=== PATIENT | male | born 1950 | race Caucasian/White ===

== ENCOUNTER → 2019-01-22 | Outpatient (CLI) | payer MEDICARE | END | disposition home or self-care (01) | LOC: PCVCCLINIC 11:56 | PROVIDERS: ATTEND Internal Medicine | DX: I10 Essential (primary) hypertension (principal); E78.5 Hyperlipidemia, unspecified; R06.02 Shortness of breath; R93.1 Abnormal findings on diagnostic imaging of heart and coronary circulation | CPT/HCPCS: 93005; G0463 ==

== ENCOUNTER → 2019-01-27 | Outpatient (CLI) | payer MEDICARE ==
--- NOTE | 2019-01-27 15:15 | PCVCIMAG ---
APPROVED REPORT Study performed: 01/27/2019 13:24:42 Exam: Stress Echocardiogram Indication: Hyperlipidemia, Hypertension, Elevated calcium score Patient Location: Echo lab Stress Nurse: Melyssa Junior RN Status: routine Ht: 6 ft 2 in HR: 71 bpm Rhythm: NSR Medical History Medical History: Hyperlipidemia, HTN Procedure The patient underwent an Exercise Stress Test using the Edmundo Protocol. Blood pressure, heart rate, and EKG were monitored. An Echocardiogram was performed by diesel maintenance technician in four stages in quad fashion. At peak stress, four selected images were obtained and placed side by side with resting images for comparison. Stress Test Details Stress Test: Exercise stress testing was performed using a Edmundo protocol. HR Resting HR: 71 bpmMax Heart Rate (APMHR): 154 bpm Max HR Achieved: 148 bpmTarget HR (85% APMHR): 130 bpm % of APMHR: 96 Recovery HR: 90 bpm HR response to stress: Normal HR response to stress BP Resting BP: 130/80 mmHg Max BP: 160/80 mmHg Recovery BP: 140/78 mmHg BP response to stress: Normal blood pressure response to stress. ECG Resting ECG: Sinus Rhythm Stress ECG: Sinus Rhythm ST Change: Normal Maximum ST Deviation: 0 mm Arrhythmia: None Recovery ECG: Sinus Rhythm Recovery ST Change: Normal Recovery ST Deviation: 0 mm Recovery Arrhythmia: None Clinical Reason for Termination: Maximal effort Exercise duration: 9 min 01 sec Highest Stage Achieved: Stage 3: 3.4 mph at 14% grade. Exercise capacity: 10.10 METs Overall Exercise Capacity for Age: Normal Angina Score: None Stress ECG Conclusion Clinical: Non-ischemic ECG: Non-ischemic [place] Treadmill Score is 9.0 which is Low risk. Pre-Stress Echo The resting Echocardiogram showed normal left ventricular contractility with an estimated Ejection Fraction of about 55-60%. Normal wall motion in all segments on baseline images. Post-Stress Echo The stress Echocardiogram showed normal left ventricular contractility with an estimated Ejection Fraction of about 60-65%. Normal augmentation of wall motion in all segments on post stress images. Clinical No clinical or ECG evidence for ischemia. Conclusion Clinical Response: Non-ischemic Exercise Capacity: Average Stress ECG Response: Non-ischemic Stress Echo Images: Non-ischemic The left ventricle is normal in size and wall thickness in both the rest and stress images. Normal stress echocardiogram with maximal exercise stress. Other Information Study Quality: Adequate <Conclusion> The left ventricle is normal in size and wall thickness in both the rest and stress images. Normal stress echocardiogram with maximal exercise stress.
== END | disposition home or self-care (01) ==
LOC: PCVCIMAG 13:25
PROVIDERS: ATTEND Internal Medicine
DX: I10 Essential (primary) hypertension (principal); E78.5 Hyperlipidemia, unspecified; R93.1 Abnormal findings on diagnostic imaging of heart and coronary circulation
CPT/HCPCS: 93325; 93351

== ENCOUNTER → 2019-08-04 | Outpatient (CLI) | payer MEDICARE ==
--- NOTE | 2019-08-04 10:05 | PCVCIMAG ---
APPROVED REPORT Study performed: 08/04/2019 08:47:59 EXAM: Comprehensive 2D, Doppler, and color-flow Echocardiogram Patient Location: Echo lab Status: routine BSA: 2.39 HR: 47 bpmBP: 124/90 mmHg Rhythm: Bradycardia Other Information Study Quality: Adequate Risk Factors: Cardiac Risk Factors: HTN Indications Dyspnea ascending aorta aneurysm 2D Dimensions IVSd: 14.27 (7-11mm) LVDd: 47.61 mm PWd: 11.82 (7-11mm)Ascending Ao: 44.78 (22-36mm) LVDs: 32.16 (25-40mm) Left Atrium: 40.47 (27-40mm) Aortic Root: 42.14 mm LV Single Plane 4CH: 58.50 % LV Single Plane 2CH: 55.71 % Biplane EF: 57.7 % Volumes Left Atrial Volume (Systole) Single Plane 4CH: 76.41 mLSingle Plane 2CH: 97.00 mL LA ESV Index: 37.00 mL/m2 Aortic Valve AoV Peak Butch.: 1.36 m/s AO Peak Gr.: 7.44 mmHgLVOT Max P.46 mmHg LVOT Max V: 1.06 m/s Mitral Valve E/A Ratio: 0.6 MV Decel. Time: 330.57 ms MV E Max Butch.: 0.31 m/s MV A Butch.: 0.51 m/s IVRT: 166.09 ms Pulmonary Valve PV Peak Butch.: 1.12 m/sPV Peak Gr.: 5.03 mmHg Pulmonary Vein P Vein S: 0.55 m/sP Vein A: 0.32 m/s P Vein D: 0.71 m/sP Vein A Dur.: 161.5 msec P Vein S/D Ratio: 0.77 Tricuspid Valve TR Peak Butch.: 2.34 m/s TR Peak Gr.: 21.90 mmHg Left Ventricle The left ventricle is normal size. There is normal LV segmental wall motion. Mild concentric left ventricular hypertrophy. Left ventricular systolic function is normal. The left ventricular ejection fraction is within the normal range. LVEF is 55-60%. Mild diastolic dysfunction is present (impaired relaxation pattern). Right Ventricle The right ventricle is normal size. The right ventricular systolic function is normal. Atria Left atrium is mildly dilated. The right atrium size is normal. Aortic Valve The aortic valve is mildly calcified, trileaflet Mild aortic regurgitation. There is no aortic valvular stenosis. Mitral Valve The mitral valve is normal in structure. Mild mitral regurgitation. No evidence of mitral valve stenosis. Tricuspid Valve The tricuspid valve is normal in structure. Mild tricuspid regurgitation with PAP of 30 mmHg. Pulmonic Valve The pulmonary valve is normal in structure. Mild pulmonic regurgitation. Great Vessels Aortic root is mildly dilated to 4.2 cm. Ascending aorta is dilated (4.5 cm). IVC is normal in size and collapses >50% with inspiration. Pericardium There is no pericardial effusion. There is no pleural effusion. <Conclusion> Left ventricular systolic function is normal. There is normal LV segmental wall motion. LVEF is 55-60%. Mild diastolic dysfunction The aortic valve is mildly calcified, trileaflet. Mild aortic regurgitation. The mitral valve is normal in structure. Mild mitral regurgitation. Mild tricuspid regurgitation with pulmonary artery pressure of 30 mmHg. Ascending aorta is dilated (4.5 cm). There is no pericardial effusion.
== END | disposition home or self-care (01) ==
LOC: PCVCIMAG 09:30
PROVIDERS: ATTEND Internal Medicine
DX: I08.3 Combined rheumatic disorders of mitral, aortic and tricuspid valves (principal); I71.6 Thoracoabdominal aortic aneurysm, without rupture; R93.1 Abnormal findings on diagnostic imaging of heart and coronary circulation; I10 Essential (primary) hypertension; E78.5 Hyperlipidemia, unspecified; Z79.82 Long term (current) use of aspirin
CPT/HCPCS: 36415; 80061; 93005; 93306; G0463